=== PATIENT | female | born 1975 | race Caucasian/White ===

== ENCOUNTER 2023-09-19 13:43 | Emergency (ER) | payer OTHER, SELFPAY ==
[2023-09-19] VITALS (16 sets, daily range): BP systolic 138–162; BP diastolic 89–102; PULSE 70–108; TEMP 36.6; O2SAT 97–98; BMI 30.6
--- NOTE | 2023-09-19 14:03 | ECG_ITS ---
[facility] Test Date: 2023-09-19 Pat Name: RIVERA PRICE Department: Room: - Gender: Female [employer] Consultant: : 1975 Requested By: Order Number: [id number] Reading MD: MAGDA JUSTIN Measurements Intervals [place] Rate: 104 P: 82 GA: 140 QRS: 72 QRSD: 80 T: 50 QT: 348 QTc: 409 Interpretive Statements 1120 Sinus tachycardia 9140 abnormal rhythm ECG No previous ECG available for comparison Electronically Signed On 09-20-2023 6:55:58 EDT by MAGDA JUSTIN
[2023-09-19] MEDS: ONDANSETRON PF 4 MG/2 ML VIAL IV (14:15)
[2023-09-19] MEDS: KETOROLAC TROMETHAMINE 30 MG/ML VIAL 15 MG IVP (14:15)
[2023-09-19] MEDS: FAMOTIDINE/PF 20 MG/2 ML VIAL IV (14:15)
[2023-09-19 14:17] LABS: Basophils Absolute Auto 0.1 10^3/uL (0.0-0.1); Basophils Percent Auto 0.8 % (0.2-2.0); Eosinophils Absolute Auto 0.2 10^3/uL (0.0-0.7); Eosinophils Percent Auto 1.3 % (0.9-7.0); Hematocrit 42.5 % (36.0-48.0); Hemoglobin 13.1 g/dL (12.0-16.0); Immature Granulocytes Abs Auto 0.07 10^3/uL (0.00-0.03); Immature Granulocytes Pct Auto 0.5 % (0.0-0.5); Lymphocytes Absolute Auto 2.3 10^3/uL (1.2-3.8); Lymphocytes Percent Auto 17.8 % (20.5-60.0); Mean Corpuscular HGB Conc 30.8 g/dL (29.9-35.2); Mean Corpuscular Hemoglobin 24.8 pg (26.7-34.0); Mean Corpuscular Volume 80.5 fL (81.0-99.0); Mean Platelet Volume 9.4 fL (9.5-13.5); Monocytes Absolute Auto 0.6 10^3/uL (0.3-0.8); Monocytes Percent Auto 4.7 % (1.7-12.0); Neutrophils Absolute Auto 9.8 10^3/uL (1.4-6.5); Neutrophils Percent Auto 74.9 % (43.0-75.0); Platelet Count 467 10^3/uL (150-450); Red Blood Count 5.28 10^6/uL (4.20-5.40); Red Cell Distribution Width 14.9 % (11.0-15.0); White Blood Count 13.1 10^3/uL (4.0-11.0)
[2023-09-19 14:24] LABS: HCG Qualitative NEGATIVE (NEGATIVE); Internal Control Within Normal Limits
[2023-09-19 14:27] LABS: INR 0.97; Prothrombin Time 10.3 sec (9.0-11.6)
--- NOTE | 2023-09-19 14:29 | CT_ITS ---
[address] [address] Patient Name: RIVERA PRICE MRN: [id number] date: 1975 Sex: F Assigned Patient Location: ER Current Patient Location: Accession/Order Number: [id number] Exam Date: 09/19/2023 14:38 Report Date: 09/19/2023 16:18 At the request of: TONO PINTO Procedure: CT abdomen pelvis wo con EXAM: CT abdomen pelvis wo con TECHNIQUE: Axial CT images were obtained of the abdomen and pelvis without intravenous contrast. Sagittal and coronal reformatted images were also obtained. Dose reduction techniques were achieved by using automated exposure control and/or adjustment of mA and/or kV according to patient size and/or use of iterative reconstruction technique. HISTORY: abd pain epigastric COMPARISON: None. FINDINGS: Lower chest: The lower lungs are clear. Liver: Benign coarse calcification posteriorly within segment 7 of liver. No additional hepatic abnormality. Gallbladder: The gallbladder is unremarkable. There is no intra or extrahepatic biliary dilatation. Pancreas: The pancreas is homogeneous without evidence for mass lesion or inflammation. Spleen: The spleen is unremarkable without evidence for mass lesion. Adrenal glands: The adrenal glands are unremarkable Kidneys and bladder: The kidneys are unremarkable with no evidence for mass lesion, hydronephrosis or inflammation. The ureters demonstrate normal caliber. The urinary bladder is unremarkable. GI Tract: Stomach is unremarkable. Visualized small bowel is unremarkable without evidence for obstruction or active inflammation. The appendix is unremarkable.The visualized portion of the large bowel is unremarkable. Reproductive: Unremarkable Lymph nodes: No retroperitoneal or abdominal lymphadenopathy. Vascular: The aorta is not dilated. Mesenteric, renal and iliac arteries are patent. Peritoneum: No free intraperitoneal air or fluid. No acute inflammation. Abdominal wall: Mild degenerative endplate change of the lower lumbar spine. CT/CT abdomen pelvis wo con IMPRESSION: No acute abdominal pathology. No acute inflammatory process. No obstructing urinary tract stone. No evidence for bowel obstruction. Electronically authenticated by: ILIR HANCOCK Date: 09/19/2023 16:18
[2023-09-19 14:33] LABS: Alanine Aminotransferase 20 U/L (14-59); Albumin Globulin Ratio 0.8; Albumin Level 3.8 g/dL (3.4-5.0); Alkaline Phosphatase 103 U/L (46-116); Anion Gap 14.5; Aspartate Amino Transferase 19 U/L (15-37); BUN Creatinine Ratio 13.6; Bilirubin Total 0.4 mg/dL (0.2-1.0); Calcium 9.8 mg/dL (8.5-10.1); Carbon Dioxide 26.7 mmol/L (21.0-32.0); Chloride 98 mmol/L (98-107); Estimated GFR (African America >60 (>=60); Estimated GFR (Non-African Ame >60 (>=60); Globulin 4.7 g/dL; Glucose 105 mg/dL (74-106); Potassium 4.2 mmol/L (3.5-5.1); Sodium 135 mmol/L (136-145); Total Protein 8.5 g/dL (6.4-8.2); Troponin I High Sensitivity 6.1 pg/mL (4.0-51.3)
--- NOTE | 2023-09-19 15:50 | ED_ITS ---
HPI - Abdominal Pain General Chief Complaint: Abdominal Pain Stated Complaint: ABDOMINAL PAIN Time Seen by Provider: 09/19/23 14:02 Source: patient Mode of arrival: walk-in History of Present Illness HPI narrative: Patient presenting to us with epigastric abdominal pain that started last night, she mentioned that she went to sleep after eating noodles and she woke up at the a.m. hours almost few hours after she had the noodles with nausea vomiting and epigastric pain The patient denies any other complaints of fever chills coughing or any other complaints She also denies having anybody else at home with similar complaints Related Data Previous Rx's ?Medication ?Instructions ?Recorded famotidine 20 mg tablet (Pepcid) 20 mg PO BID #10 tabs 09/19/23 ondansetron 4 mg disintegrating 4 mg PO Q8H PRN nausea and 09/19/23 tablet vomiting #7 tabs Allergies Allergy/AdvReac Type Severity Reaction Status Date / Time No Known Drug Allergies Allergy Verified 09/19/23 13:56 Review of Systems ROS Status of ROS 10 or more systems reviewed and unremark able except as noted in history and below Exam Narrative Exam Narrative: Nurses notes and vital signs reviewed and patient is not hypoxic. General: Well-appearing and in no apparent distress. Skin: Warm, dry, no pallor noted. No rash. Head: Normocephalic, atraumatic. Neck: Supple, non-tender. Eye: Pupils are equal, round and EOMI. No scleral icterus. Ears, Nose, Mouth, and Throat: TM are clear, no nasal mucosal hypertrophy. Oral mucosa is moist, no posterior oropharynx erythema, uvula is mid-line Cardiovascular: Regular Rate and Rhythm without murmur, gallop or rub. Respiratory: No accessory muscle use or respiratory distress. Lungs are clear to auscultation, no wheezing, rales or rhonchi Chest Wall: no tenderness Back: No midline thoracic or lumbar vertebral tenderness. No CVA tenderness Musculoskeletal: normal ROM, no calf or popliteal tenderness, no lower ex tremity edema/swelling GI: Abdomen is soft, non-distended. Normal bowel sounds. No masses appreciated. Significant epigastric tenderness, no rebound, guarding, or rigidity noted. Neurological: A&O x4. No cranial nerve dysfunction observed. No truncal ataxia. Moves all extremities. Sensation intact. Psychiatric: Cooperative and interactive. Normal mood and affect. Constitutional Vital Signs, click to edit/add: Last Vital Signs Temp 97.8 F 09/19/23 13:48 Pulse 72 09/19/23 15:50 Resp 18 09/19/23 15:50 BP 144/89 H 09/19/23 15:42 Pulse Ox 97 09/19/23 14:02 O2 Del Method Room Air 09/19/23 14:02 Course Vital Signs Vital signs: Vital Signs Temperature 97.8 F 09/19/23 13:48 Pulse Rate 108 H 09/19/23 13:48 Respiratory Rate 26 H 09/19/23 13:48 Blood Pressure 162/102 H 09/19/23 13:48 Pulse Oximetry 98 09/19/23 13:48 Oxygen Delivery Method Room Air 09/19/23 13:48 Temperature 97.8 F 09/19/23 13:48 Pulse Rate 72 09/19/23 15:50 Respiratory Rate 18 09/19/23 15:50 Blood Pressure 144/89 H 09/19/23 15:42 Pulse Oximetry 97 09/19/23 14:02 Oxygen Delivery Method Room Air 09/19/23 14:02 MDM - Abdominal Pain MDM Narrative Medical decision making narrative: EKG showing sinus tachycardia heart rate [address] elevation or depression Chemistry showed no acute pathology with a negative test and troponin and the patient CBC shows mild leukocytosis of 13 Patient was provided in the ER with IV fluids as well as Toradol Pepcid and Zofran The patient CT abdomen pelvis showed no acute pathology and the patient was feeling much better after supportive care She will continue supportive care and hydration at home The patient is to follow up with primary care physician in next 2-3 days or to return to the emergency department should any of the signs or symptoms worsen or new symptoms develop. The patient agrees with the following Diagnosis and Treatment plan and the patient will be discharged home. Lab Data Labs: Lab Results 09/19/23 Range/Units 13:58 WBC 13.1 H (4.0-11.0) 10^3/uL RBC 5.28 (4.20-5.40) 10^6/uL Hgb 13.1 (12.0-16.0) g/dL Hct 42.5 (36.0-48.0) % MCV 80.5 L (81.0-99.0) fL MCH 24.8 L (26.7-34.0) pg MCHC 30.8 (29.9-35.2) g/dL RDW 14.9 (11.0-15.0) % Plt Count 467 H (150-450) 10^3/uL MPV 9.4 L (9.5-13.5) fL Neut % (Auto) 74.9 (43.0-75.0) % Lymph % (Auto) 17.8 L (20.5-60.0) % [place] % (Auto) 4.7 (1.7-12.0) % Eos % (Auto) 1.3 (0.9-7.0) % Baso % (Auto) 0.8 (0.2-2.0) % Neut # (Auto) 9.8 H (1.4-6.5) 10^3/uL Lymph # (Auto) 2.3 (1.2-3.8) 10^3/uL [place] # (Auto) 0.6 (0.3-0.8) 10^3/uL Eos # (Auto) 0.2 (0.0-0.7) 10^3/uL Baso # (Auto) 0.1 (0.0-0.1) 10^3/uL Abs Immat Gran (auto) 0.07 H (0.00-0.03) 10^3/uL Imm/Tot Granulo (auto) 0.5 (0.0-0.5) % PT 10.3 (9.0-11.6) sec INR 0.97 Sodium 135 L (136-145) mmol/L Potassium 4.2 (3.5-5.1) mmol/L Chloride 98 (98-107) mmol/L Carbon Dioxide 26.7 (21.0-32.0) mmol/L Anion Gap 14.5 BUN 8.0 (7.0-18.0) mg/dL Creatinine 0.59 (0.55-1.02) mg/dL Est GFR ( Amer) >60 (>=60) Est GFR (Non-Af Amer) >60 (>=60) BUN/Creatinine Ratio 13.6 Glucose 105 (74-106) mg/dL Calcium 9.8 (8.5-10.1) mg/dL Total Bilirubin 0.4 (0.2-1.0) mg/dL AST 19 (15-37) U/L ALT 20 (14-59) U/L Alkaline Phosphatase 103 (46-116) U/L Troponin I High Sens 6.1 (4.0-51.3) pg/mL Total Protein 8.5 H (6.4-8.2) g/dL Albumin 3.8 (3.4-5.0) g/dL Globulin 4.7 g/dL Albumin/Globulin Ratio 0.8 Lipase 22.0 (16.0-77.0) U/L Serum HCG, Qual Negative (NEGATIVE) Discharge Plan Discharge Stand Alone Forms: Portal Instructions Chief Complaint: Abdominal Pain Clinical Impression: Gastroenteritis Patient Disposition: Home, Self-Care Time of Disposition Decision: 16:37 Condition: Good Prescriptions / Home Meds: New famotidine [Pepcid] 20 mg tablet 20 mg PO BID Qty: 10 0RF ondansetron 4 mg tablet,disintegrating 4 mg PO Q8H PRN (Reason: nausea and vomiting) Qty: 7 0RF Print Language: Estonian Instructions: Gastroenteritis (DC) Referrals: Physician,Non-Staff, MD [Primary Care Provider] - 1 week Discharge Date/Time: 09/19/23 16:45
== END 2023-09-19 16:45 | disposition home or self-care (01) ==
PROVIDERS: Emergency Provider Emergency Medicine
DX: K52.9 Noninfective gastroenteritis and colitis, unspecified (principal)
CPT/HCPCS: 36415; 74176; 80053; 83690; 84484; 84703; 85025; 85610; 93005; 96374; 96375; 99285; J1885; J2405